=== PATIENT | male | born 1985 | race Caucasian/White ===

== ENCOUNTER → 2020-11-26 | Outpatient (CLI) | payer OTHER ==
[~2020-11-26] MED LIST: APAP325T4 PO; LEVO150T7 PO; TRAZ150T90 PO
== END ==
LOC: M LABSMTC 08:49 → EDUNIT# 08:50
PROVIDERS: ATTEND Anesthesiology
DX: Z01.812 Encounter for preprocedural laboratory examination (principal); Z20.822 Contact with and (suspected) exposure to COVID-19

== ENCOUNTER 2020-12-01 06:06 | Day surgery (SDC) | payer OTHER ==
[~2020-12-01] VITALS: Ht 167.6 cm; Wt 114.8 kg
[~2020-12-01 06:06] MED LIST changes: +LR 1,000 ML IV ONE; +ceFAZolin SOD 2 GM in IV 1 EA IV ONE
[2020-12-01] MEDS ORDERED: MIDAZOLAM INJ 2MG/2ML VIAL (J2250 PER 1MG) As Ordered ONE (07:04)
[2020-12-01] MEDS ORDERED: fentaNYL 100 MCG/2 ML INJECTION (J3010) As Ordered ONE (07:05)
[2020-12-01] MEDS ORDERED: ROCURONIUM BROMIDE 50 MG/5 ML VIAL As Ordered ONE ×2 (07:06→08:11)
[2020-12-01] MEDS ORDERED: LIDOCAINE 2% 100MG/5ML SDV (FOR ANES.) As Ordered ONE (07:09)
[2020-12-01] MEDS ORDERED: dexameTHASONE 4 MG/ML 1ML VIAL (J1100 PER 1MG) As Ordered ONE (07:11)
[2020-12-01] MEDS ORDERED: BUPIVACAINE HCL 0.25% 30ML VIAL As Ordered ONE (07:18)
[2020-12-01] MEDS ORDERED: BUPIVACAINE/EPIN 0.25% 30 ML VIAL As Ordered ONE (07:18)
[2020-12-01] MEDS ORDERED: BUPIVACAINE LIPOSOME/PF 1.3% 20ML VIAL (13.3MG/ML)(EXPAREL)(C9290 PER1MG) As Ordered ONE (07:19)
[2020-12-01] MEDS ORDERED: METOCLOPRAMIDE INJ 10MG/2ML VIAL (J2765 PER 1) As Ordered ONE (07:44)
[2020-12-01] MEDS ORDERED: ONDANSETRON 4MG/2ML VIAL As Ordered ONE (07:44)
[2020-12-01] MEDS ORDERED: propofoL 200 MG/20 ML VIAL As Ordered ONE (07:45)
[2020-12-01] MEDS ORDERED: SUGAMMADEX SODIUM 500 MG/5 ML VIAL (BRIDION) As Ordered ONE ×2 (07:45→08:13)
[2020-12-01] MEDS ORDERED: ACETAMINOPHEN 1000MG 100ML IV BTL (OFIRMEV) (J0131 PER 10MG) As Ordered ONE (07:47)
[2020-12-01] MEDS ORDERED: GLYCOPYRROLATE INJ 0.2 MG/ML 2 ML VIAL As Ordered ONE (08:02)
[2020-12-01] MEDS ORDERED: KETOROLAC 60MG 2ML VIAL As Ordered ONE (08:08)
[2020-12-01] MEDS ORDERED: LABETALOL 100MG/20ML VIAL As Ordered ONE (08:42)
[2020-12-01] MEDS ORDERED: HYDROmorphone HCL 2 MG/ML 1ML VIAL (J1170) As Ordered ONE (10:02)
[2020-12-01] MEDS ORDERED: METOCLOPRAMIDE INJ 10MG/2ML VIAL (J2765 PER 1) IV PRN (10:40)
[2020-12-01] MEDS ORDERED: LR 1,000 ML IV SCH (10:40)
[2020-12-01] MEDS ORDERED: ONDANSETRON 4MG/2ML VIAL IV PRN (10:40)
[2020-12-01] MEDS ORDERED: oxyCODONE 5MG TAB PO PRN (10:40)
[2020-12-01] MEDS ORDERED: MEPERIDINE INJ 25 MG/ML VIAL (J2175) IV PRN (10:40)
[2020-12-01] MEDS ORDERED: fentaNYL 100 MCG/2 ML INJECTION (J3010) IV PRN (10:40)
[2020-12-01] MEDS ORDERED: NS 1,000 ML IV SCH (10:45)
[2020-12-01] MEDS ORDERED: traMADol 50 MG TAB PO PRN (10:45)
[2020-12-01 12:10] VITALS: BP 129/67
== END 2020-12-01 12:10 | disposition home or self-care (01) ==
LOC: M SDC 06:06
PROVIDERS: ATTEND Surgery
DX: K43.2 Incisional hernia without obstruction or gangrene (principal); E03.9 Hypothyroidism, unspecified; Z79.899 Other long term (current) drug therapy; F79 Unspecified intellectual disabilities
CPT/HCPCS: 49654; C1781; C9290; J0131; J0690; J1100; J1170; J1885; J2250; J2405; J2765; J3010; S2900

== ENCOUNTER → 2023-09-18 | Outpatient (CLI) | payer OTHER ==
[~2023-09-18] MED LIST changes: -LR 1,000 ML IV ONE; -ceFAZolin SOD 2 GM in IV 1 EA IV ONE
== END ==
LOC: M RAD 17:09
PROVIDERS: ATTEND Surgery
DX: K43.2 Incisional hernia without obstruction or gangrene (principal); K76.0 Fatty (change of) liver, not elsewhere classified; K57.90 Diverticulosis of intestine, part unspecified, without perforation or abscess without bleeding; K40.20 Bilateral inguinal hernia, without obstruction or gangrene, not specified as recurrent

== ENCOUNTER 2023-10-14 11:11 | Inpatient (IN) | payer OTHER ==
[~2023-10-14] VITALS: Ht 170.2 cm; Wt 114.5 kg
[2023-10-14 19:14] LABS: BASO # 0.1 10^3/uL (0.0-0.2); BASO % 0.6 % (0.0-1.0); EOS # 0.1 10^3/uL (0.0-0.5); EOS % 0.9 % (0.0-3.0); HEMATOCRIT 46.5 % (42.0-52.0); HEMOGLOBIN 15.4 g/dl (13.5-17.5); LYMPH # 2.3 10^3/uL (1.5-5.0); LYMPH % 21.2 % (24.0-44.0); MEAN CORPUSCULAR HEMOGLOBIN 31.3 pg (27.0-33.0); MEAN CORPUSCULAR HGB CONC 33.1 g/dl (32.0-36.5); MEAN CORPUSCULAR VOLUME 94.5 fl (80.0-96.0); MONO # 0.9 10^3/uL (0.0-0.8); MONO % 8.7 % (2.0-8.0); NEUTROPHILS # 7.3 10^3/uL (1.5-8.5); NEUTROPHILS % 68.3 % (36.0-66.0); PLATELET COUNT, AUTOMATED 322 10^3/uL (150-450); RED BLOOD COUNT 4.92 10^6/uL (4.30-6.10); WHITE BLOOD COUNT 10.7 10^3/uL (4.0-10.0)
[2023-10-14 19:46] LABS: LIPASE 25 U/L (12-53)
[2023-10-14 19:49] LABS: ALKALINE PHOSPHATASE 109 U/L (46-116); ALT/SGPT 38 U/L (7.0-40); AST/SGOT 21 U/L (<34); BILIRUBIN,DIRECT 0.4 MG/DL (<0.4); BILIRUBIN,TOTAL 0.6 MG/DL (0.3-1.2); BLOOD UREA NITROGEN 9 MG/DL (9-23); CALCIUM LEVEL 9.2 MG/DL (8.5-10.1); CARBON DIOXIDE LEVEL 30 MMOL/L (20-31); CHLORIDE LEVEL 102 MMOL/L (98-107); CREATININE FOR GFR 0.95 MG/DL (0.70-1.30); GLOMERULAR FILTRATION RATE > 60.0 (>60); GLUCOSE, FASTING 113 MG/DL (60-100); POTASSIUM SERUM 4.4 MMOL/L (3.5-5.1); SODIUM LEVEL 140 MMOL/L (136-145); TOTAL PROTEIN 7.2 G/DL (5.7-8.2)
[2023-10-14] MEDS ORDERED: NORCO, ANEXSIA 5/325MG TABLET (HYDROcodone/ACETAMINOPHEN) PO PRN (21:10)
[2023-10-14] MEDS ORDERED: ACETAMINOPHEN TAB 650MG DOSE (2X325MG) PO PRN (21:10)
[2023-10-14] MEDS ORDERED: MORPHINE 2 MG/ML 1ML VIAL IV PRN (21:10)
[2023-10-14] MEDS ORDERED: HOME MED LIST COMPLETE! XX SCH (21:50)
[2023-10-15 01:45] VITALS: BP 143/89; TEMP 97.9; O2SAT 98
[2023-10-15] MEDS: NS 1,000 ML IV SCH (04:48)
[2023-10-15 05:14] VITALS: BP 145/88; TEMP 97.7; O2SAT 96
[2023-10-15 05:55] LABS: HEMATOCRIT 41.9 % (42.0-52.0); MEAN CORPUSCULAR HGB CONC 33.4 g/dl (32.0-36.5); MEAN CORPUSCULAR VOLUME 92.7 fl (80.0-96.0); PLATELET COUNT, AUTOMATED 294 10^3/uL (150-450); RED BLOOD COUNT 4.52 10^6/uL (4.30-6.10); WHITE BLOOD COUNT 8.5 10^3/uL (4.0-10.0)
[2023-10-15] MEDS: HEPARIN SOD (PORCINE) 5000UNITS/ML 1ML VIAL/SYRINGE SQ SCH (06:00)
[2023-10-15 06:29] LABS: BLOOD UREA NITROGEN 10 MG/DL (9-23); CALCIUM LEVEL 8.6 MG/DL (8.5-10.1); CARBON DIOXIDE LEVEL 29 MMOL/L (20-31); CHLORIDE LEVEL 106 MMOL/L (98-107); CREATININE FOR GFR 0.94 MG/DL (0.70-1.30); GLOMERULAR FILTRATION RATE > 60.0 (>60); GLUCOSE, FASTING 94 MG/DL (60-100); POTASSIUM SERUM 4.2 MMOL/L (3.5-5.1); SODIUM LEVEL 142 MMOL/L (136-145)
[2023-10-15] MEDS ORDERED: ONDANSETRON 4MG 2ML VIAL IV PRN (07:05)
[2023-10-15] MEDS: PANTOPRAZOLE 40MG VIAL IV SCH (09:01)
[2023-10-15 14:00] VITALS: BP 123/73; TEMP 98.1; O2SAT 98
[2023-10-15] MEDS ORDERED: LEVOTHYROXINE 100MCG (0.1MG) 5ML SDV PF (SOLUTION FORM) IV SCH (15:00)
[2023-10-15] MEDS: LEVOTHYROXINE 150MCG TABLET (0.15MG) NG SCH (15:45)
[2023-10-15 20:50] VITALS: BP 123/74; TEMP 97.9; O2SAT 99
[2023-10-16 05:00] VITALS: BP 111/59; TEMP 97.9; O2SAT 98
[2023-10-16 06:44] LABS: BASO # 0.1 10^3/uL (0.0-0.2); BASO % 1.5 % (0.0-1.0); EOS # 0.3 10^3/uL (0.0-0.5); EOS % 5.2 % (0.0-3.0); HEMATOCRIT 39.7 % (42.0-52.0); HEMOGLOBIN 13.1 g/dl (13.5-17.5); LYMPH # 2.3 10^3/uL (1.5-5.0); LYMPH % 39.1 % (24.0-44.0); MEAN CORPUSCULAR HEMOGLOBIN 31.6 pg (27.0-33.0); MEAN CORPUSCULAR VOLUME 95.7 fl (80.0-96.0); MONO # 0.5 10^3/uL (0.0-0.8); MONO % 7.9 % (2.0-8.0); NEUTROPHILS # 2.7 10^3/uL (1.5-8.5); PLATELET COUNT, AUTOMATED 259 10^3/uL (150-450); RED BLOOD COUNT 4.15 10^6/uL (4.30-6.10)
[2023-10-16 07:12] LABS: BLOOD UREA NITROGEN 9 MG/DL (9-23); CALCIUM LEVEL 8.4 MG/DL (8.5-10.1); CARBON DIOXIDE LEVEL 27 MMOL/L (20-31); CHLORIDE LEVEL 107 MMOL/L (98-107); CREATININE FOR GFR 0.86 MG/DL (0.70-1.30); GLOMERULAR FILTRATION RATE > 60.0 (>60); GLUCOSE, FASTING 67 MG/DL (60-100); POTASSIUM SERUM 4.4 MMOL/L (3.5-5.1); SODIUM LEVEL 140 MMOL/L (136-145)
[2023-10-16] MEDS ORDERED: KETOROLAC 30 MG/ML 1ML VIAL IV PRN (09:30)
[2023-10-16] MEDS: D5W/0.9% SODIUM CHLORIDE 1,000 ML IV SCH (10:15)
[2023-10-16 14:00] VITALS: BP 117/62; TEMP 97.9; O2SAT 97
[2023-10-16 19:30] VITALS: BP 128/80; TEMP 97.9; O2SAT 98
[2023-10-17 06:00] VITALS: BP 127/72; TEMP 97.9; O2SAT 94
[2023-10-17 06:19] LABS: BASO # 0.1 10^3/uL (0.0-0.2); BASO % 1.1 % (0.0-1.0); EOS # 0.3 10^3/uL (0.0-0.5); EOS % 4.6 % (0.0-3.0); HEMATOCRIT 41.5 % (42.0-52.0); HEMOGLOBIN 13.6 g/dl (13.5-17.5); LYMPH # 2.1 10^3/uL (1.5-5.0); LYMPH % 33.6 % (24.0-44.0); MEAN CORPUSCULAR HEMOGLOBIN 31.1 pg (27.0-33.0); MEAN CORPUSCULAR HGB CONC 32.8 g/dl (32.0-36.5); MEAN CORPUSCULAR VOLUME 94.7 fl (80.0-96.0); MONO # 0.4 10^3/uL (0.0-0.8); MONO % 6.6 % (2.0-8.0); NEUTROPHILS # 3.4 10^3/uL (1.5-8.5); NEUTROPHILS % 53.6 % (36.0-66.0); PLATELET COUNT, AUTOMATED 278 10^3/uL (150-450); RED BLOOD COUNT 4.38 10^6/uL (4.30-6.10); WHITE BLOOD COUNT 6.3 10^3/uL (4.0-10.0)
[2023-10-17 06:41] LABS: BLOOD UREA NITROGEN 7 MG/DL (9-23); CALCIUM LEVEL 8.5 MG/DL (8.5-10.1); CARBON DIOXIDE LEVEL 29 MMOL/L (20-31); CHLORIDE LEVEL 107 MMOL/L (98-107); CREATININE FOR GFR 0.77 MG/DL (0.70-1.30); GLOMERULAR FILTRATION RATE > 60.0 (>60); GLUCOSE, FASTING 76 MG/DL (60-100); POTASSIUM SERUM 3.9 MMOL/L (3.5-5.1); SODIUM LEVEL 142 MMOL/L (136-145)
[2023-10-17 14:00] VITALS: BP 125/71; TEMP 97.9; O2SAT 99
[2023-10-17 21:24] VITALS: BP 137/80; TEMP 97.9; O2SAT 99
[2023-10-18 05:45] LABS: BASO # 0.1 10^3/uL (0.0-0.2); BASO % 0.9 % (0.0-1.0); EOS # 0.3 10^3/uL (0.0-0.5); EOS % 4.1 % (0.0-3.0); HEMATOCRIT 38.9 % (42.0-52.0); LYMPH # 2.3 10^3/uL (1.5-5.0); LYMPH % 36.9 % (24.0-44.0); MEAN CORPUSCULAR HGB CONC 33.4 g/dl (32.0-36.5); MEAN CORPUSCULAR VOLUME 92.8 fl (80.0-96.0); MONO # 0.5 10^3/uL (0.0-0.8); MONO % 7.4 % (2.0-8.0); NEUTROPHILS # 3.2 10^3/uL (1.5-8.5); NEUTROPHILS % 50.2 % (36.0-66.0); PLATELET COUNT, AUTOMATED 270 10^3/uL (150-450); RED BLOOD COUNT 4.19 10^6/uL (4.30-6.10); WHITE BLOOD COUNT 6.3 10^3/uL (4.0-10.0)
[2023-10-18 05:46] VITALS: BP 136/79; TEMP 97.7; O2SAT 100
[2023-10-18 06:08] LABS: BLOOD UREA NITROGEN 5 MG/DL (9-23); CALCIUM LEVEL 8.4 MG/DL (8.5-10.1); CARBON DIOXIDE LEVEL 28 MMOL/L (20-31); CHLORIDE LEVEL 108 MMOL/L (98-107); CREATININE FOR GFR 0.77 MG/DL (0.70-1.30); GLOMERULAR FILTRATION RATE > 60.0 (>60); GLUCOSE, FASTING 104 MG/DL (60-100); POTASSIUM SERUM 3.6 MMOL/L (3.5-5.1); SODIUM LEVEL 141 MMOL/L (136-145)
[2023-10-18] MEDS: D5W/0.9% SODIUM CHLORIDE 1,000 ML IV SCH (11:13)
[2023-10-18] MEDS: FUROSEMIDE 40MG/4ML VIAL IV ONE (11:13)
[2023-10-18 14:00] VITALS: BP 124/75; TEMP 97.7; O2SAT 99
[2023-10-18 21:25] VITALS: BP 130/78; TEMP 97.9; O2SAT 100
[2023-10-19 05:33] LABS: BASO # 0.1 10^3/uL (0.0-0.2); BASO % 0.8 % (0.0-1.0); EOS # 0.3 10^3/uL (0.0-0.5); EOS % 3.5 % (0.0-3.0); HEMOGLOBIN 13.7 g/dl (13.5-17.5); LYMPH # 1.8 10^3/uL (1.5-5.0); LYMPH % 25.5 % (24.0-44.0); MEAN CORPUSCULAR HEMOGLOBIN 31.2 pg (27.0-33.0); MEAN CORPUSCULAR HGB CONC 33.4 g/dl (32.0-36.5); MEAN CORPUSCULAR VOLUME 93.4 fl (80.0-96.0); MONO # 0.5 10^3/uL (0.0-0.8); MONO % 6.4 % (2.0-8.0); NEUTROPHILS # 4.6 10^3/uL (1.5-8.5); NEUTROPHILS % 63.2 % (36.0-66.0); PLATELET COUNT, AUTOMATED 275 10^3/uL (150-450); RED BLOOD COUNT 4.39 10^6/uL (4.30-6.10); WHITE BLOOD COUNT 7.2 10^3/uL (4.0-10.0)
[2023-10-19 05:50] VITALS: BP 143/74; TEMP 97.9; O2SAT 99
[2023-10-19 06:02] LABS: BLOOD UREA NITROGEN < 5 MG/DL (9-23); CALCIUM LEVEL 8.7 MG/DL (8.5-10.1); CARBON DIOXIDE LEVEL 30 MMOL/L (20-31); CHLORIDE LEVEL 104 MMOL/L (98-107); CREATININE FOR GFR 0.91 MG/DL (0.70-1.30); GLOMERULAR FILTRATION RATE > 60.0 (>60); GLUCOSE, FASTING 93 MG/DL (60-100); POTASSIUM SERUM 3.6 MMOL/L (3.5-5.1); SODIUM LEVEL 140 MMOL/L (136-145)
[2023-10-19] MEDS: FUROSEMIDE 40MG/4ML VIAL IV ONE (13:30)
[2023-10-19 14:00] VITALS: BP 128/81; TEMP 98.4; O2SAT 97
[2023-10-19 22:00] VITALS: BP 135/76; TEMP 97.9; O2SAT 99
[2023-10-20 04:42] LABS: BASO # 0.1 10^3/uL (0.0-0.2); BASO % 0.9 % (0.0-1.0); EOS # 0.3 10^3/uL (0.0-0.5); EOS % 4.7 % (0.0-3.0); HEMATOCRIT 41.1 % (42.0-52.0); HEMOGLOBIN 13.8 g/dl (13.5-17.5); LYMPH # 1.9 10^3/uL (1.5-5.0); MEAN CORPUSCULAR HEMOGLOBIN 30.9 pg (27.0-33.0); MEAN CORPUSCULAR HGB CONC 33.6 g/dl (32.0-36.5); MEAN CORPUSCULAR VOLUME 91.9 fl (80.0-96.0); MONO # 0.4 10^3/uL (0.0-0.8); MONO % 6.3 % (2.0-8.0); NEUTROPHILS # 3.8 10^3/uL (1.5-8.5); NEUTROPHILS % 58.5 % (36.0-66.0); PLATELET COUNT, AUTOMATED 251 10^3/uL (150-450); RED BLOOD COUNT 4.47 10^6/uL (4.30-6.10); WHITE BLOOD COUNT 6.6 10^3/uL (4.0-10.0)
[2023-10-20 05:03] LABS: BLOOD UREA NITROGEN < 5 MG/DL (9-23); CALCIUM LEVEL 8.3 MG/DL (8.5-10.1); CARBON DIOXIDE LEVEL 30 MMOL/L (20-31); CHLORIDE LEVEL 102 MMOL/L (98-107); CREATININE FOR GFR 0.92 MG/DL (0.70-1.30); GLOMERULAR FILTRATION RATE > 60.0 (>60); GLUCOSE, FASTING 89 MG/DL (60-100); MAGNESIUM LEVEL 1.3 MG/DL (1.8-2.4); POTASSIUM SERUM 3.5 MMOL/L (3.5-5.1); SODIUM LEVEL 138 MMOL/L (136-145)
[2023-10-20] MEDS: DEXTROMETHORPHAN 60MG/10ML SUSP 90ML BTL(DELSYM) PO PRN (05:29)
[2023-10-20 06:00] VITALS: BP 124/73; TEMP 98.1; O2SAT 98
[2023-10-20] MEDS ORDERED: COLA100C5 PO (07:56)
[2023-10-20] MEDS: SENOKOT S TAB PO SCH (08:21)
[2023-10-20] MEDS: POTASSIUM CHLORIDE 10MEQ SR TABLET PO ONE (08:21)
[2023-10-20] MEDS: PANTOPRAZOLE 40MG TAB (PROTONIX) PO SCH (08:21)
[2023-10-20] MEDS: MAG SULF 1GM/100ML (MAG RUN) 1 GM in IV 1 EA IV SCH (08:22)
[2023-10-20] MEDS: FUROSEMIDE 40MG/4ML VIAL IV ONE (08:22)
[2023-10-20 14:00] VITALS: BP 107/64; TEMP 97.9; O2SAT 96
== END 2023-10-20 18:07 | disposition home or self-care (01) | DRG 254 ==
LOC: M ED 11:11 → M ED INP 21:06 → M MSPAV 10-15 01:38
PROVIDERS: ADMIT Family Medicine; ATTEND Internal Medicine Nephrology
DX: K43.6 Other and unspecified ventral hernia with obstruction, without gangrene (principal); E87.70 Fluid overload, unspecified; E66.01 Morbid (severe) obesity due to excess calories; E03.9 Hypothyroidism, unspecified; F79 Unspecified intellectual disabilities; Z68.39 Body mass index [BMI] 39.0-39.9, adult; Z79.890 Hormone replacement therapy; Z83.3 Family history of diabetes mellitus; Z79.899 Other long term (current) drug therapy

== ENCOUNTER 2024-01-09 07:08 | Day surgery (SDC) | payer OTHER ==
[~2024-01-09] VITALS: Ht 167.6 cm; Wt 115.2 kg
[~2024-01-09 07:08] MED LIST changes: +COLA100C5 PO
[2024-01-09] MEDS ORDERED: LR 1,000 ML IV SCH (07:25)
[2024-01-09] MEDS ORDERED: propofoL 200 MG/20 ML VIAL As Ordered ONE (07:39)
[2024-01-09] MEDS ORDERED: MIDAZOLAM INJ 2MG/2ML VIAL As Ordered ONE (07:39)
[2024-01-09] MEDS ORDERED: LIDOCAINE 2% 100MG/5ML SDV (FOR ANES.) As Ordered ONE (07:39)
[2024-01-09] MEDS: BOTOX THERAPEUTIC 100 UNIT VIAL As Ordered ONE (08:57)
[2024-01-09 09:40] VITALS: BP 127/77; TEMP 97; O2SAT 98
== END 2024-01-09 09:45 | disposition home or self-care (01) ==
LOC: M SDC 07:08
PROVIDERS: ATTEND Surgery
DX: K43.2 Incisional hernia without obstruction or gangrene (principal); E66.01 Morbid (severe) obesity due to excess calories
CPT/HCPCS: 64646; J0585; J0665; J2250

== ENCOUNTER 2024-02-06 06:37 | Inpatient (IN) | payer OTHER ==
[2024-02-06] VITALS (9 sets, daily range): BP systolic 106–147; BP diastolic 59–80; TEMP 97.5–97.9; O2SAT 91–97
[~2024-02-06] VITALS: Ht 165.1 cm; Wt 113.7 kg
[2024-02-06] MEDS ORDERED: ROCURONIUM BROMIDE 50MG/5ML VIAL As Ordered ONE (08:10)
[2024-02-06] MEDS ORDERED: MIDAZOLAM INJ 2MG/2ML VIAL As Ordered ONE (08:10)
[2024-02-06] MEDS ORDERED: propofoL 200 MG/20 ML VIAL As Ordered ONE (08:10)
[2024-02-06] MEDS ORDERED: fentaNYL 100 MCG/2 ML INJECTION As Ordered ONE (08:10)
[2024-02-06] MEDS ORDERED: LIDOCAINE 2% 100MG/5ML SDV (FOR ANES.) As Ordered ONE (08:10)
[2024-02-06] MEDS ORDERED: ACETAMINOPHEN 1000MG 100ML IV BAG As Ordered ONE (08:11)
[2024-02-06] MEDS: ceFAZolin SOD 2 GM in IV 1 EA IV ONE (09:10)
[2024-02-06] MEDS: HEPARIN SOD (PORCINE) 5000UNITS/ML 1ML VIAL/SYRINGE SQ ONE (09:25)
[2024-02-06] MEDS ORDERED: GLYCOPYRROLATE INJ 0.2 MG/ML 2 ML VIAL As Ordered ONE (09:30)
[2024-02-06] MEDS: ceFAZolin 1GM VIAL As Ordered ONE (09:59)
[2024-02-06] MEDS ORDERED: HYDROmorphone HCL 2MG/ML 1ML VIAL As Ordered ONE (10:37)
[2024-02-06] MEDS: ceFAZolin 2 GM/D5W 50 ML IV BAG As Ordered ONE (13:15)
[2024-02-06] MEDS: LIDOCAINE 1% SDV 30ML VIAL As Ordered ONE (14:11)
[2024-02-06] MEDS ORDERED: SUGAMMADEX SODIUM 500 MG/5 ML VIAL (BRIDION) As Ordered ONE (14:15)
[2024-02-06] MEDS ORDERED: ONDANSETRON 4MG 2ML VIAL As Ordered ONE (14:15)
[2024-02-06] MEDS ORDERED: HYDROMORPHONE HCL 0.5 MG/ 0.5 ML SYRINGE IV PRN (14:40)
[2024-02-06] MEDS ORDERED: oxyCODONE 5MG TAB PO PRN (14:40)
[2024-02-06] MEDS: LR 1,000 ML IV SCH ×2 (14:40→16:58)
[2024-02-06] MEDS ORDERED: fentaNYL 100 MCG/2 ML INJECTION IV PRN (14:40)
[2024-02-06] MEDS ORDERED: ONDANSETRON 4MG 2ML VIAL IV PRN ×2 (14:40→14:55)
[2024-02-06] MEDS ORDERED: MORPHINE 4 MG/ML 1ML VIAL IV PRN (14:55)
[2024-02-06] MEDS ORDERED: ACETAMINOPHEN TAB 650MG DOSE (2X325MG) PO PRN (14:55)
[2024-02-06] MEDS ORDERED: PERCOCET 5MG/325MG TAB PO PRN ×2 (14:55)
[2024-02-06] MEDS ORDERED: HOME MED LIST COMPLETE! XX SCH (16:20)
[2024-02-06] MEDS: CelecoXIB 400 MG CAP PO ONE (16:22)
[2024-02-06] MEDS: KETOROLAC 30 MG/ML 1ML VIAL IV SCH (16:58)
[2024-02-06] MEDS: DOCUSATE SODIUM 100MG CAPSULE PO SCH (20:52)
[2024-02-06] MEDS: ENOXAPARIN 40MG/0.4ML SYRINGE (J1650 PER 10MG) SC SCH (20:53)
[2024-02-07] VITALS: BP 126/66; TEMP 98.1; O2SAT 94
[2024-02-07 04:00] VITALS: BP 130/66; TEMP 98.1; O2SAT 96
[2024-02-07 08:00] VITALS: BP 126/65; TEMP 98.1; O2SAT 93
[2024-02-07 12:00] VITALS: BP 122/52; TEMP 98.1; O2SAT 92
[2024-02-07 16:13] VITALS: BP 134/86; TEMP 98.1; O2SAT 94
[2024-02-07 20:00] VITALS: BP 139/76; TEMP 98.2; O2SAT 93
[2024-02-08 04:00] VITALS: BP 133/75; TEMP 98.2; O2SAT 97
[2024-02-08 06:07] LABS: BASO % 0.4 % (0.0-1.0); EOS # 0.1 10^3/uL (0.0-0.5); EOS % 0.9 % (0.0-3.0); HEMATOCRIT 34.3 % (42.0-52.0); HEMOGLOBIN 11.1 g/dl (13.5-17.5); LYMPH # 1.3 10^3/uL (1.5-5.0); LYMPH % 17.5 % (24.0-44.0); MEAN CORPUSCULAR HEMOGLOBIN 31.6 pg (27.0-33.0); MEAN CORPUSCULAR HGB CONC 32.4 g/dl (32.0-36.5); MEAN CORPUSCULAR VOLUME 97.7 fl (80.0-96.0); MONO # 0.6 10^3/uL (0.0-0.8); MONO % 7.4 % (2.0-8.0); NEUTROPHILS # 5.5 10^3/uL (1.5-8.5); NEUTROPHILS % 73.3 % (36.0-66.0); PLATELET COUNT, AUTOMATED 170 10^3/uL (150-450); RED BLOOD COUNT 3.51 10^6/uL (4.30-6.10); WHITE BLOOD COUNT 7.6 10^3/uL (4.0-10.0)
[2024-02-08 06:28] LABS: BLOOD UREA NITROGEN 11 MG/DL (9-23); CALCIUM LEVEL 7.9 MG/DL (8.5-10.1); CARBON DIOXIDE LEVEL 28 MMOL/L (20-31); CHLORIDE LEVEL 111 MMOL/L (98-107); CREATININE FOR GFR 1.06 MG/DL (0.70-1.30); GLOMERULAR FILTRATION RATE > 60.0 (>60); GLUCOSE, FASTING 176 MG/DL (60-100); POTASSIUM SERUM 3.9 MMOL/L (3.5-5.1); SODIUM LEVEL 142 MMOL/L (136-145)
[2024-02-08 19:26] VITALS: BP 133/76; TEMP 97.2; O2SAT 95
[2024-02-09 03:48] VITALS: BP 125/78; TEMP 97.4; O2SAT 96
[2024-02-09] MEDS: MIRALAX *UNIT DOSE* 17GM PACKET PO ONE (11:13)
[2024-02-09 12:00] VITALS: BP 129/78; TEMP 98.1; O2SAT 99
== END 2024-02-09 16:41 | disposition home or self-care (01) | DRG 227 ==
LOC: M OR 06:37 → M MSPAV 15:54
PROVIDERS: ADMIT Surgery; ATTEND Surgery
PROC: 0WUF4JZ Supplement Abdominal Wall with Synthetic Substitute, Percutaneous Endoscopic Approach (ICD-10-PCS; 2024-02-06)
PROC: 0WQF0ZZ Repair Abdominal Wall, Open Approach (ICD-10-PCS; principal; 2024-02-06 08:25)
DX: K43.2 Incisional hernia without obstruction or gangrene (principal); Z68.41 Body mass index [BMI] 40.0-44.9, adult; E07.9 Disorder of thyroid, unspecified; E66.01 Morbid (severe) obesity due to excess calories; Z83.3 Family history of diabetes mellitus